=== PATIENT | male | born 1945 | race Caucasian/White ===

== ENCOUNTER 2019-03-12 11:44 | Day surgery (SDC) | payer OTHER ==
[~2019-03-12] VITALS: Ht 182.9 cm; Wt 89.5 kg
[~2019-03-12 11:44] MED LIST: ASPI325EC PO; ATORVASTATIN CA10 MG PO; LOSA25; Lopressor 25 mg25 MG PO; MIRT15 PO; NASAL DECONGEST30 MG PO; OMEPRAZOLE20 MG PO; SENIOR TABS1 EACH PO
[2019-03-12] MEDS ORDERED: FISH OIL + D31 EACH (12:38)
== END 2019-03-12 15:29 | disposition home or self-care (01) ==
LOC: ORSCSDS 11:44
PROVIDERS: Surgery
PROC: 0YU60JZ Supplement Left Inguinal Region with Synthetic Substitute, Open Approach (ICD-10-PCS; principal; 2019-03-12 13:00)
DX: K40.90 Unilateral inguinal hernia, without obstruction or gangrene, not specified as recurrent (principal); I10 Essential (primary) hypertension; G47.33 Obstructive sleep apnea (adult) (pediatric); K21.9 Gastro-esophageal reflux disease without esophagitis; Z79.899 Other long term (current) drug therapy
CPT/HCPCS: A9270-GY; C1781; J0690; J2250; J2370; J2704; J3010; J7120